=== PATIENT | male | born 1950 | race Caucasian/White ===

== ENCOUNTER 2017-08-24 08:53 | Emergency (ER) | payer MEDICARE ==
[~2017-08-24] VITALS: Ht 182.9 cm; Wt 88.0 kg
[2017-08-24] MEDS ORDERED: TAM75C PO (09:20)
[2017-08-24] MEDS ORDERED: AZI25OT PO (09:20)
[2017-08-24] MEDS ORDERED: ALBU8HFA PO (09:20)
[2017-08-24] MEDS ORDERED: GUAI10SY2 PO (09:20)
[2017-08-24 09:39] VITALS: BP 147/81
== END 2017-08-24 09:43 | disposition home or self-care (01) ==
LOC: ER 08:54
DX: J20.9 Acute bronchitis, unspecified (principal); R50.9 Fever, unspecified; Z79.2 Long term (current) use of antibiotics
CPT/HCPCS: 99283